=== PATIENT | male | born 1995 | race Caucasian/White ===

== ENCOUNTER 2018-09-01 09:49 | Emergency (ER) | payer OTHER, BC ==
[2018-09-01] MEDS: HYDROCODONE/APAP (5/325) TAB PO (12:26)
== END 2018-09-01 13:21 | disposition home or self-care (01) ==
LOC: E/R 09:49 → FTE 13:21
DX: M79.642 Pain in left hand (principal); M25.532 Pain in left wrist; J45.909 Unspecified asthma, uncomplicated; Z87.891 Personal history of nicotine dependence
CPT/HCPCS: 29125; 73110-LT; 73130-LT; 99283-25

== ENCOUNTER 2018-11-13 05:12 | Emergency (ER) | payer SELFPAY, OTHER ==
[2018-11-13] MEDS: DIAZEPAM 5 MG TAB PO (06:34)
[2018-11-13] MEDS: KETOROLAC 60 MG INJ IM (06:34)
[2018-11-13] MEDS: DEXAMETHASONE 10 MG/ML 1 ML INJ IM (06:35)
== END 2018-11-13 07:11 | disposition home or self-care (01) ==
LOC: FTE 05:12
DX: M54.5 Low back pain (principal); J45.909 Unspecified asthma, uncomplicated; F17.210 Nicotine dependence, cigarettes, uncomplicated
CPT/HCPCS: 96372; 99284-25

== ENCOUNTER 2019-03-31 13:50 | Emergency (ER) | payer OTHER ==
[2019-03-31] MEDS: HYDROCODONE/APAP (5/325) TAB PO (15:12)
== END 2019-03-31 15:39 | disposition home or self-care (01) ==
LOC: FTE 13:50
DX: S99.921A Unspecified injury of right foot, initial encounter (principal); W20.8XXA Other cause of strike by thrown, projected or falling object, initial encounter; Y92.9 Unspecified place or not applicable
CPT/HCPCS: 73630; 99283-25